=== PATIENT | male | born 1945 | race Caucasian/White ===

== ENCOUNTER 2024-02-23 21:35 | Inpatient (IN) | payer MEDICARE ==
[2024-02-23 22:48] LABS: Basophils % (A) 0 %; Eosinophils # (A) 0.4 k/uL (0-0.7); Eosinophils % (A) 5 %; HCT 41.4 % (39.0-53.0); HGB 13.6 gm/dL (13.0-17.5); Lymphocytes # (A) 1.4 k/uL (1.0-4.8); Lymphocytes % (A) 19 %; MCH 32.5 pg (25.0-35.0); MCHC 32.9 g/dL (31.0-37.0); MCV 98.7 fL (80.0-100.0); Mean Platelet Volume 7.3; Monocytes # (A) 0.7 k/uL (0-1.0); Monocytes % (A) 10 %; Neutrophils # (A) 4.5 k/uL (1.3-7.7); Neutrophils % (A) 63 %; Platelet Count 254 k/uL (150-450); RBC 4.19 m/uL (4.30-5.90); RDW 12.2 % (11.5-15.5); WBC 7.2 k/uL (3.8-10.6)
[2024-02-23 22:51] LABS: ALT 27 U/L (4-49); AST 36 U/L (17-59); African American GFR (CKD) >90 (>60 ml/min/1.73 sqM); Albumin 4.1 g/dL (3.5-5.0); Alkaline Phosphatase 74 U/L (38-126); Anion Gap 6 mmol/L; Blood Urea Nitrogen 24 mg/dL (9-20); Calcium 8.9 mg/dL (8.4-10.2); Carbon Dioxide 23 mmol/L (22-30); Chloride 97 mmol/L (98-107); Glucose 104 mg/dL (74-99); Non-African American GFR(CKD) 79 (>60 ml/min/1.73 sqM); Potassium 4.3 mmol/L (3.5-5.1); Sodium 126 mmol/L (137-145); Total Bilirubin 0.7 mg/dL (0.2-1.3); Total Protein 6.1 g/dL (6.3-8.2)
[2024-02-23 23:04] LABS: INR 0.9 (<1.2); Partial Thromboplastin Time 24.9 sec (22.0-30.0); Prothrombin Time 9.7 sec (10.0-12.5)
[2024-02-24] MEDS: LIDOCAINE 1% INJ 10MG/ML (20 ML MDV) SQ ONE (00:36)
[2024-02-24] MEDS: PROPOFOL 10 MG/ML 20 ML VIAL IV ONE ×2 (00:48→02:00)
--- NOTE | 2024-02-24 00:54 | CT ---
EXAM: CT Chest Without Intravenous Contrast CLINICAL HISTORY: ITS.REASON CT Reason: fall, pneumo TECHNIQUE: Axial computed tomography images of the chest without intravenous contrast. CTDI is 6.8 mGy and DLP is 342.1 mGy-cm. This CT exam was performed using one or more of the following dose reduction techniques: automated exposure control, adjustment of the mA and/or kV according to patient size, and/or use of iterative reconstruction technique. COMPARISON: No relevant prior studies available. FINDINGS: Lungs: The right lung is partially collapsed. The left lung is clear. Pleural space: Moderate pneumothorax on the right. No evidence of tension at this time. Heart: Heart size is normal. Moderate to severe CAD. Bones/joints: Right fourth through sixth rib fractures. Soft tissues: Soft tissue gas within the right pectoralis. Vasculature: Unremarkable. Lymph nodes: Unremarkable. IMPRESSION: 1. Moderate pneumothorax on the right. No evidence of tension at this time. Recommend chest tube. 2. Right fourth through sixth rib fractures. <MYCVCSECTION> Communications: 02/24/24 00:59 Verify Receipt Verified receipt with on 02/23 00: 58 (-04:00)
[2024-02-24] MEDS ORDERED: HYDROcodone/APAP 5-325MG 1 EACH TAB PO PRN (01:25)
[2024-02-24] MEDS ORDERED: NALOXONE 0.4 MG/ML 1 ML VIAL IV PRN (01:25)
[2024-02-24] MEDS ORDERED: ACETAMINOPHEN TAB 325 MG TAB PO PRN (01:25)
--- NOTE | 2024-02-24 01:26 | ED ---
Fall HPI - General Chief Complaint: Fall Stated Complaint: fall Time Seen by Provider: 02/23/24 21:40 Source: patient, EMS Mode of arrival: EMS - History of Present Illness Initial Comments: 78-year-old male presents to the emergency department with right-sided rib frac tures and pneumothorax diagnosis. Patient is currently on a cruise going through the [place]. He states that he fell in his room and landed on a chair arm on February 17. He has had some right-sided chest wall pain with some exertional shortness of breath. Patient was seen in a [facility]. No imaging was performed. He was prescribed Motrin. Patient continues to have some symptoms of shortness of breath and therefore was seen by the cruise doctor. X-ray was performed and demonstrated right-sided rib fractures with a pneumothorax. They felt the patient needed cardiothoracic evaluation and therefore they exited the boat and came to the closest hospital. At this time the patient states he is pain-free. He has minimal shortness of breath. No fevers or cough. Denies hitting his head. No other injuries from the fall. No other alleviating, precipitating or modifying factors - Related Data Allergies Allergy/AdvReac Type Severity Reaction Status Date / Time No Known Allergies Allergy Verified 02/23/24 21:44 Review of Systems ROS Statement: Those systems with pertinent positive or pertinent negative responses have been documented in the HPI. ROS Other: All systems not noted in ROS Statement are negative. Past Medical History Past Medical History: Hypertension History of Any Multi-Drug Resistant Organisms: None Reported Past Surgical History: Heart Catheterization With Stent Past Psychological History: No Psychological Hx Reported Smoking Status: Former smoker Past Alcohol Use History: Daily Past Drug Use History: Marijuana General Exam Limitations: no limitations General appearance: alert, in no apparent distress Head exam: Present: atraumatic, normocephalic, normal inspection Eye exam: Present: normal appearance, PERRL, EOMI. Absent: scleral icterus, conjunctival injection, periorbital swelling ENT exam: Present: normal exam, mucous membranes moist Neck exam: Present: normal inspection. Absent: tenderness, meningismus, lymphadenopathy Respiratory exam: Present: chest wall tenderness (To palpation of the right lateralposterior chest wall. There is ecchymosis in the site with some crepitance palpated), decreased breath sounds (On the right). Absent: respiratory distress, wheezes, rales, rhonchi, stridor Cardiovascular Exam: Present: regular rate, normal rhythm, normal heart sounds. Absent: systolic murmur, diastolic murmur, rubs, gallop, clicks GI/Abdominal exam: Present: soft, normal bowel sounds. Absent: distended, tenderness, guarding, rebound, rigid Extremities exam: Present: normal inspection, full ROM, normal capillary refill. Absent: tenderness, pedal edema, joint swelling, calf tenderness Back exam: Present: normal inspection Neurological exam: Present: alert, oriented X3, CN II-XII intact Psychiatric exam: Present: normal affect, normal mood Skin exam: Present: warm, dry, intact, normal color. Absent: rash Course Vital Signs 02/23/24 02/23/24 02/24/24 21:39 22:54 00:29 Temperature 98.5 F Pulse Rate 69 70 64 Respiratory 16 18 16 Rate Blood Pressure 175/85 151/78 161/72 O2 Sat by Pulse 95 93 L 96 Oximetry 02/24/24 02/24/24 02/24/24 00:35 00:41 00:45 Temperature Pulse Rate 65 71 74 Respiratory 18 16 18 Rate Blood Pressure 167/79 135/72 124/65 O2 Sat by Pulse 98 96 95 Oximetry 02/24/24 02/24/24 02/24/24 00:58 01:05 01:15 Temperature Pulse Rate 68 72 70 Respiratory 16 16 16 Rate Blood Pressure 128/69 164/86 162/80 O2 Sat by Pulse 99 98 99 Oximetry 02/24/24 02/24/24 01:30 02:56 Temperature Pulse Rate 69 72 Respiratory 18 16 Rate Blood Pressure 179/80 171/67 O2 Sat by Pulse 98 97 Oximetry Procedures - [place] Protocol (Time Out) Procedure Performed:: thoravent placement Performing Provider: Irene Regalado Nurse: Yolanda Stephen Respiratory Therapist: Yaquelin Jalloh Patient Identification (2 identifiers required): Chart, Verbal, Arm Band, Name, Birthdate - Chest Tube Insertion Consent Obtained: written consent Side of Procedure: right Indication: Pneumothorax Placed on monitor/pulse oximetry: Yes Site Prep: Chloroprep Local Anesthesia: Lidocaine 1% Amount (mLs): 8 Insertion Site: Other (midclavicular, second intercostal space) Scalpel: #11 Open into Pleural Space Using: Trocar Tube Size (Jamaican): Other (13) Returns: Air Sutured in Place: No Attached to Suction: Yes Type of Suction: Pleuravac Repeat X-ray Results: Lung Inflated Patient Tolerated Procedure: well, no complications - Procedural Sedation *Procedural Sedation Start Time: 12:41 *Procedural Sedation Stop Time: 01:15 *Risks,benefits, and alternative therapies discussed?: Yes *Patient indicates understanding of risk/benefit discussion?: Yes *Indications: other (Insertion of chest tube) *Previous Adverse Reaction to Anesthesia/Sedation?: No *ASA Class: II *Mallampati Airway Score: 1 *Time of Last PO Intake: 17:00 Preparation: secured entrance monitor applied, pulse oximeter, capnometry used, supplemental O2 applied, reversal agents at bedside, suction/airway equipment at bedside IV Propofol Dose (mgs): 120 Complications: none Patient Tolerated Procedure: well, no complications Medical Decision Making - Medical Decision Making Was pt. sent in by a medical professional or institution (, PA, PUMPMAN, urgent care, hospital, or group home...) When possible be specific @ -Patient was sent in from the physician on the [employer] cruise line Did you speak to anyone other than the patient for history (EMS, parent, family, police, friend...)? What history was obtained from this source @ -No Did you review nursing and triage notes (agree or disagree)? Why? @ -I reviewed and agree with nursing and triage notes Were old charts reviewed (outside hosp., previous admission, EMS record, old EKG, old radiological studies, urgent care reports/EKG's, group home records)? Report findings @ -I reviewed the x-ray that was completed today on the crew ship Differential Diagnosis (chest pain, altered mental status, abdominal pain women, abdominal pain men, vaginal bleeding, weakness, fever, dyspnea, syncope, headache, dizziness, GI bleed, back pain, seizure, CVA, palpatations, mental health, musculoskeletal)? @ -Differential Dyspnea: Coronary syndrome, arrhythmia, tamponade, asthma, COPD, pulmonary embolism, pneumonia, pneumothorax, pulmonary effusion, anaphylaxis, diabetic ketoacidosis, flailed chest, pulmonary contusion, diaphragmatic rupture, anemia, neuromuscular, this is not meant to be an all-inclusive list. EKG interpreted by me (3pts min.). @ -yes and demonstrates sinus rhythm with rate of 69. ME interval 183. QRS 93. Qtc 396. No st segment elevation or depression. X-rays interpreted by me (1pt min.). @ -None done CT interpreted by me (1pt min.). @ -yes and demonstrates a moderate right-sided pneumothorax U/S interpreted by me (1pt. min.). @ -None done What testing was considered but not performed or refused? (CT, X-rays, U/S, labs)? Why? @ -None What meds were considered but not given or refused? Why? @ -None Did you discuss the management of the patient with other professionals (professionals i.e. DrAng, PA, PUMPMAN, lab, RT, psych nurse, geriatric social work professor, rn case manager hospice, teacher, ecological technical officer, housing case manager)? Give summary @ -Discussed case with Dr. Griffin Was smoking cessation discussed for >3mins.? @ -No Was critical care preformed (if so, how long)? @ -Yes, 35 minutes Were there social determinants of health that impacted care today? How? (Homelessness, low income, unemployed, alcoholism, drug addiction, transportation, low edu. Level, literacy, decrease access to med. care, senior living, rehab)? @ -No Was there de-escalation of care discussed even if they declined (Discuss DNR or withdrawal of care, Hospice)? DNR status @ -No What co-morbidities impacted this encounter? (DM, HTN, Smoking, COPD, CAD, Cancer, CVA, ARF, Chemo, Hep., AIDS, mental health diagnosis, sleep apnea, morbid obesity)? @ -None Was patient admitted / discharged? Hospital course, mention meds given and route, prescriptions, significant lab abnormalities, going to OR and other pertinent info. @ -Upon arrival patient seen and evaluated in room 6. Thorough history and physical exam was performed. I did review the x-ray print out that was sent with the patient. I did obtain a CT of the patient's chest which demonstrates moderate sided pneumothorax with rib fractures. Patient does require chest tube placement. Patient initially would like to go home and have chest tube placed back home however I informed him of the detrimental nature without intervening at this time. Also discussed the inability to fly with his current diagnosis. Patient then agrees to chest tube placement. 13 Jamaican right-sided Thora vent was placed without difficulty. Procedural sedation was performed in order to place the chest tube. Chest x-ray was performed which demonstrates no residual pneumothorax at this time. Tube appears to be in correct position with condensation within the tube and flutter to the valve. Patient will be admitted to [facility]. Jenny Ugalde for admission. Dr. Dallas will be placed on consult Undiagnosed new problem with uncertain prognosis? @ -No Drug Therapy requiring intensive monitoring for toxicity (Heparin, Nitro, Insulin, Cardizem)? @ -No Were any procedures done? @ -No Diagnosis/symptom? @ -Acute fall, right sided rib fractures, acute pneumothorax status post chest tube placement Acute, or Chronic, or Acute on Chronic? @ -Acute Uncomplicated (without systemic symptoms) or Complicated (systemic symptoms)? @ -Complicated Side effects of treatment? @ -No Exacerbation, Progression, or Severe Exacerbation? @ -No Poses a threat to life or bodily function? How? (Chest pain, [place], [place], pneumonia, PE, COPD, DKA, ARF, appy, cholecystitis, CVA, Diverticulitis, Homicidal, Suicidal, threat to staff... and all critical care pts) @ -Yes, as the patient has a collapsed lung - Lab Data Result diagrams: 02/23/24 21:47 02/23/24 21:47 Lab Results 02/23/24 02/23/24 02/23/24 Range/Units 21:47 21:47 21:47 WBC 7.2 (3.8-10.6) k/uL RBC 4.19 L (4.30-5.90) m/uL Hgb 13.6 (13.0-17.5) gm/dL Hct 41.4 (39.0-53.0) % MCV 98.7 (80.0-100.0) fL MCH 32.5 (25.0-35.0) pg MCHC 32.9 (31.0-37.0) g/dL RDW 12.2 (11.5-15.5) % Plt Count 254 (150-450) k/uL MPV 7.3 Neutrophils % 63 % Lymphocytes % 19 % Monocytes % 10 % Eosinophils % 5 % Basophils % 0 % Neutrophils # 4.5 (1.3-7.7) k/uL Lymphocytes # 1.4 (1.0-4.8) k/uL Monocytes # 0.7 (0-1.0) k/uL Eosinophils # 0.4 (0-0.7) k/uL Basophils # 0.0 (0-0.2) k/uL PT 9.7 L (10.0-12.5) sec INR 0.9 (<1.2) APTT 24.9 (22.0-30.0) sec Sodium 126 L (137-145) mmol/L Potassium 4.3 (3.5-5.1) mmol/L Chloride 97 L (98-107) mmol/L Carbon Dioxide 23 (22-30) mmol/L Anion Gap 6 mmol/L BUN 24 H (9-20) mg/dL Creatinine 0.92 (0.66-1.25) mg/dL Est GFR (CKD-EPI)AfAm >90 (>60 ml/min/1.73 sqM) Est GFR (CKD-EPI)NonAf 79 (>60 ml/min/1.73 sqM) Glucose 104 H (74-99) mg/dL Calcium 8.9 (8.4-10.2) mg/dL Total Bilirubin 0.7 (0.2-1.3) mg/dL AST 36 (17-59) U/L ALT 27 (4-49) U/L Alkaline Phosphatase 74 (38-126) U/L Total Protein 6.1 L (6.3-8.2) g/dL Albumin 4.1 (3.5-5.0) g/dL Disposition Clinical Impression: Fall, Rib fractures, Pneumothorax Disposition: ADMITTED IP TO THIS HOSP Condition: Stable Is patient prescribed a controlled substance at d/c from ED?: No Time of Disposition: Decision to Admit Reason: Admit from EC Decision Date: 02/24/24 Decision Time: :25
--- NOTE | 2024-02-24 01:50 | XR ---
EXAM: XR Chest, 1 View CLINICAL HISTORY: ITS.REASON XR Reason: thoravent placement TECHNIQUE: Frontal view of the chest. COMPARISON: None. FINDINGS: Lungs: Low lung volumes. Right thoracostomy tube terminates at the right lung apex. No substantial pneumothorax is seen.. Atelectatic changes are seen in the left lung base Pleural space: Loss of bilateral costophrenic sulci question small pleural effusion.. Heart: Borderline/mildly enlarged cardiac silhouette. Calcified aortic atherosclerosis. Normal mediastinal contour. Bones/joints: Unremarkable. No acute fracture. IMPRESSION: Right chest tube present with the tip in the right apical region. No discernible pneumothorax Left basilar atelectatic changes. Probably small pleural effusion present. An elevated right hemidiaphragm. .
[2024-02-24] MEDS: MORPHINE SULFATE 4 MG/ML SYRINGE IV PRN (02:52)
[2024-02-24] MEDS: SODIUM CHLORIDE 0.9% 1,000 ML IV STA (10:08)
--- NOTE | 2024-02-24 10:50 | P.GSCN ---
History of Present Illness Consult date: 02/24/24 Reason for Consult: Right-sided traumatic pneumothorax status post fall, status post Thora vent placement Requesting physician: Dimitri Griffin History of present illness: This is a 78-year-old gentleman who lives in [place]. He has a previous medical history of CAD status post stenting, hypertension, previous tobacco dependence, daily EtOH use, and occasional marijuana use. Apparently this patient fell against a chair last Wednesday. He did have a bit of pain and did go to an urgent care in [place]. They did not check a chest x-ray, told him to take Motrin for the pain. The patient then departed with his and a [facility] cruise. Apparently on the cruise he continue to have shortness of breath, he was seen by the doctor on board the cruise who performed a chest x- ray and noticed a right-sided pneumothorax. The patient was told to get off the cruise and go to a nearby hospital. He came into [facility] emergency room where he had a CT scan demonstrating large right-sided pneumothorax along with right-sided rib fractures in ribs 4 through 6. A Thora vent was placed in the emergency room, repeat chest x-ray demonstrated near complete reexpansion of the lung. The patient was admitted for evaluation and treatment with consultation placed to pulmonology. Apparently the patient had indicated to pulmonology that he wanted to leave to fly home to [place]. Consultation was placed to cardiothoracic surgery for treatment recommendations. Review of Systems Review of systems was completed and was negative except as noted - Respiratory Reports as per HPI, Reports dyspnea, Reports pain Past Medical History Past Medical History: Coronary Artery Disease (CAD), Hypertension History of Any Multi-Drug Resistant Organisms: None Reported Past Surgical History: Heart Catheterization With Stent Past Psychological History: No Psychological Hx Reported Smoking Status: Former smoker Past Alcohol Use History: Daily Past Drug Use History: Marijuana Medications and Allergies Home Medications Medication Instructions Recorded Confirmed Type Acetaminophen [Tylenol Arthritis] 650 mg PO BID 02/24/24 02/24/24 History Alfuzosin HCl [Alfuzosin HCl ER] 10 mg PO HS 02/24/24 02/24/24 History Ascorbic Acid [Vitamin C] 1,000 mg PO DAILY 02/24/24 02/24/24 History Atorvastatin [Lipitor] 60 mg PO HS 02/24/24 02/24/24 History Beta Sitosterol Pure Encap. 1 tab PO DAILY 02/24/24 02/24/24 History Bromfenac Sodium [Prolensa Ophth 1 drop LEFT EYE Q2D 02/24/24 02/24/24 History Soln] Diclofenac/Lidocaine Gel 1 applic TOPICAL QID PRN 02/24/24 02/24/24 History Docusate 50mg 50 mg PO DAILY 02/24/24 02/24/24 History Eszopiclone [Lunesta] 3 mg PO HS 02/24/24 02/24/24 History Lutein/Zeaxanthin 1 cap PO DAILY 02/24/24 02/24/24 History [Lutein-Zeaxanthin 20-4 mg Softgel] Meloxicam [Mobic] 15 mg PO DAILY 02/24/24 02/24/24 History Multivitamins, Thera [Multivitamin 1 tab PO DAILY 02/24/24 02/24/24 History (formulary)] Prevagen 1 tab PO DAILY 02/24/24 02/24/24 History Spironolactone [Aldactone] 25 mg PO HS 02/24/24 02/24/24 History Sulfamethoxazole/Trimethoprim 1 tab PO BID 02/24/24 02/24/24 History [Bactrim DS 800-160 mg] Testosterone Cypionate 100 mg IM Q21D 02/24/24 02/24/24 History [Depo-Testosterone] Valsartan [Diovan] 160 mg PO DAILY 02/24/24 02/24/24 History amLODIPine [Norvasc] 5 mg PO HS 02/24/24 02/24/24 History icosapent ethyL [Icosapent Ethyl] 2 gm PO DAILY 02/24/24 02/24/24 History metFORMIN HCL ER [Glucophage XR] 500 mg PO HS 02/24/24 02/24/24 History Allergies Allergy/AdvReac Type Severity Reaction Status Date / Time No Known Allergies Allergy Verified 02/24/24 06:33 Surgical - Exam Vital Signs Temp Pulse Resp BP Pulse Ox 98.5 F 69 16 175/85 95 02/23/24 21:39 02/23/24 21:39 02/23/24 21:39 02/23/24 21:39 02/23/24 21:39 CONSTITUTIONAL: Awake and alert, appears comfortable, cooperative, well- developed, well-nourished, no acute distress EYES: Pupils equal, round, reactive to light, normal ocular movement ENT: Moist mucous membranes without oral lesions present NECK: No masses, no bruits, trachea midline RESPIRATORY: Lungs sounds clear to auscultation bilaterally. Respirations even, nonlabored. Currently on room air with oxygen saturation 98%. Strong cough. Thora-vent present to right side chest, was connected to continuous wall suction with no airleak present CARDIOVASCULAR: S1, S2 present. Regular rate and rhythm. Palpable peripheral pulses bilaterally. No edema present. No calf pain or tenderness noted GASTROINTESTINAL: Abdomen soft, nontender, nondistended without masses or organomegaly noted. There is no rebound or guarding present. Active bowel sounds present 4 quadrants. GENITOURINARY: Deferred INTEGUMENTARY: Skin is warm and dry. Bruising present to right lower lateral chest NEUROLOGIC: Cranial nerves II through XII intact, normal coordination, no obvious motor or sensory deficits, speech is normal MUSKULOSKELETAL: Able to move all extremities, strength equal bilaterally, normal posture PSYCHIATRIC: Alert and oriented to person place and time, appropriate affect, intact judgment and insight Results - Labs 02/23/24 21:47 02/23/24 21:47 Abnormal Lab Results - Last 24 Hours (Table) 02/23/24 02/23/24 02/23/24 Range/Units 21:47 21:47 21:47 RBC 4.19 L (4.30-5.90) m/uL PT 9.7 L (10.0-12.5) sec Sodium 126 L (137-145) mmol/L Chloride 97 L (98-107) mmol/L BUN 24 H (9-20) mg/dL Glucose 104 H (74-99) mg/dL Total Protein 6.1 L (6.3-8.2) g/dL Diabetes panel 02/23/24 Range/Units 21:47 Sodium 126 L (137-145) mmol/L Potassium 4.3 (3.5-5.1) mmol/L Chloride 97 L (98-107) mmol/L Carbon Dioxide 23 (22-30) mmol/L BUN 24 H (9-20) mg/dL Creatinine 0.92 (0.66-1.25) mg/dL Glucose 104 H (74-99) mg/dL Calcium 8.9 (8.4-10.2) mg/dL AST 36 (17-59) U/L ALT 27 (4-49) U/L Alkaline Phosphatase 74 (38-126) U/L Total Protein 6.1 L (6.3-8.2) g/dL Albumin 4.1 (3.5-5.0) g/dL Calcium panel 02/23/24 Range/Units 21:47 Calcium 8.9 (8.4-10.2) mg/dL Albumin 4.1 (3.5-5.0) g/dL Pituitary panel 02/23/24 Range/Units 21:47 Sodium 126 L (137-145) mmol/L Potassium 4.3 (3.5-5.1) mmol/L Chloride 97 L (98-107) mmol/L Carbon Dioxide 23 (22-30) mmol/L BUN 24 H (9-20) mg/dL Creatinine 0.92 (0.66-1.25) mg/dL Glucose 104 H (74-99) mg/dL Calcium 8.9 (8.4-10.2) mg/dL Adrenal panel 02/23/24 Range/Units 21:47 Sodium 126 L (137-145) mmol/L Potassium 4.3 (3.5-5.1) mmol/L Chloride 97 L (98-107) mmol/L Carbon Dioxide 23 (22-30) mmol/L BUN 24 H (9-20) mg/dL Creatinine 0.92 (0.66-1.25) mg/dL Glucose 104 H (74-99) mg/dL Calcium 8.9 (8.4-10.2) mg/dL Total Bilirubin 0.7 (0.2-1.3) mg/dL AST 36 (17-59) U/L ALT 27 (4-49) U/L Alkaline Phosphatase 74 (38-126) U/L Total Protein 6.1 L (6.3-8.2) g/dL Albumin 4.1 (3.5-5.0) g/dL - Imaging Chest x-ray: report reviewed, image reviewed CT scan - chest: report reviewed, image reviewed Assessment and Plan Assessment: Right-sided traumatic pneumothorax, status post Thora vent placement by the emergency room physicians Fall from standing Right-sided 4-6 rib fractures Shortness of breath, right-sided chest pain CAD status post stenting Hypertension Previous tobacco dependence Daily EtOH use Occasional marijuana use Plan: The patient was seen and examined at the bedside with present. Chart/diagnostics reviewed. Case was discussed with Dr. Gaffney from cardiothoracic surgery as well as Dr. Dallas. We placed his Thora-vent to wate rseal. Will repeat chest x-ray in the morning, if stable likely will discontinue Thora-vent. Possibly may place occlusive cap in the morning and then repeat chest x-ray just to be sure pneumothorax has truly resolved. Patient encouraged to continue incentive spirometry use. Pain control per curr ent medication regimen. Patient and were instructed that the patient may not get on an airplane for a minimum of 1 week, preferably 2 weeks. They did verbalize understanding that they would need to drive home after discharge. Medical management of other comorbidities per internal medicine, pulmonology, trauma services. Thank you Dr. Dallas for this consult. I have personally seen and examined the patient, performed the documentation and the assessment and plan as written. Number of minutes spent on the visit: 30. MICHELLE Sandoval
[2024-02-24 10:57] LABS: Basophils # (A) 0.1 k/uL (0-0.2); Basophils % (A) 1 %; Eosinophils # (A) 0.3 k/uL (0-0.7); Eosinophils % (A) 4 %; HCT 42.9 % (39.0-53.0); HGB 14.5 gm/dL (13.0-17.5); Lymphocytes % (A) 11 %; MCH 33.3 pg (25.0-35.0); MCHC 33.8 g/dL (31.0-37.0); MCV 98.7 fL (80.0-100.0); Mean Platelet Volume 7.7; Monocytes # (A) 0.8 k/uL (0-1.0); Monocytes % (A) 9 %; Neutrophils # (A) 6.3 k/uL (1.3-7.7); Neutrophils % (A) 73 %; Platelet Count 283 k/uL (150-450); RBC 4.35 m/uL (4.30-5.90); RDW 12.4 % (11.5-15.5); WBC 8.6 k/uL (3.8-10.6)
[2024-02-24] MEDS ORDERED: LORazepam 1 MG TAB PO PRN ×3 (13:22)
[2024-02-24] MEDS ORDERED: LORazepam 0.5 MG TAB PO PRN (13:22)
--- NOTE | 2024-02-24 13:30 | P.GSHP ---
History of Present Illness H&P Date: 02/24/24 CHIEF COMPLAINT: Fall HISTORY OF PRESENT ILLNESS: This is a 78-year-old male who lives in [place]. He was in a hotel in [place] on February 17 in which he was ambulating that evening to the bathroom he fell coming back and hit the right side of his rib cage on the arm of a chair. Patient reports that he had pain there he did go to an urgent care in [place] no x-ray was performed and he was given the clearance to board the [employer] ship. While on board of the [employer] ship patient continued to have pain and some shortness of breath and difficulty taking in deep breaths. They performed a chest x-ray on the crew ship which did report right-sided rib fractures and right pneumothorax. Patient then got off the cruise ship to come to the nearest hospital for treatment. CT scan of the chest performed here did report a moderate right-sided pneumothorax and right- sided rib fractures on ribs 4 through 6. Patient had a Thora vent chest tube placed in the ER. Patient seen by cardiothoracic service in which they have placed a Thora vent to [facility] and have repeat chest x-ray in a.m. Patient reports that his pain is controlled and he is feeling better. He is on room air. PAST MEDICAL HISTORY: See list. PAST SURGICAL HISTORY: See list. MEDICATIONS: See list. ALLERGIES: See list. SOCIAL HISTORY: No illicit drug use. Daily alcohol use. Former smoker REVIEW OF SYSTEMS: CONSTITUTIONAL: Denies fever or chills. HEENT: Denies blurred vision, vision changes, or eye pain. Denies hemoptysis ENDOCRINE: Denies heat or cold intolerance. CARDIOVASCULAR: Denies chest pain or pressure. RESPIRATORY: Shortness of breath when taking in a deep breath GASTROINTESTINAL: Denies abdominal pain. Denies nausea or vomiting. NEURO: Denies history of seizures. PSYCH: No depression or suicidal ideation HEMATOLOGIC: Denies bleeding disorders. LYMPHATIC: The patient denies any lumps and bumps around the neck. GENITOURINARY: Denies any blood in urine or increased urinary frequency. MUSCULOSKELETAL: Denies myalgias. Denies joint swelling. Denies decreased range of motion beyond patients baseline. SKIN: Denies pruitis. Denies rash. PHYSICAL EXAM: VITAL SIGNS: Reviewed GENERAL: Well-developed in no acute distress. HEENT: No sclera icterus. Extraocular movements grossly intact. Moist buccal mucosa. Head is atraumatic, normocephalic. Hears conversational speech. No nasal drainage. NECK: Supple without lymphadenopathy. CHEST: Non-labored respirations and equal bilateral excursions. Thora vent right chest wall. Patient has bruising along the right side of the rib cage CARDIOVASCULAR: Palpable 2+ radial pulses. ABDOMEN: Soft. Nondistended. Nontender MUSCULOSKELETAL: No clubbing or cyanosis. NEUROLOGIC: No focal or lateralizing signs. Cranial nerves II through XII grossly intact. PSYCH: Appropriate affect. Alert and oriented to person, place and time. SKIN: Well perfused. Good skin turgor. LABORATORY DATA: WBC 8.6 hgb 14.5 platelets 283 Na 126 k 4.3 creatinine 0.92 IMAGING: CT chest moderate pneumothorax on the right. No evidence of tension at this time. Recommend chest tube. Right fourth through sixth rib fractures. Chest x-ray right chest tube present with tip in the right apical region. No discernible pneumothorax. ASSESSMENT: 1. Fall with trauma to right-sided rib cage 2. Right fourth through sixth rib fractures 3. Right pneumothorax secondary to trauma status post Thora vent placement 4. Daily alcohol use 5. History of coronary disease with stenting 6. Hypertension 7. Hyponatremia PLAN: -Chest tube management per cardiothoracic service -Consult pulmonary service regarding pneumothorax -Consult medicine service for medical management -Encourage patient to use incentive spirometer -Follow-up on chest x-ray for tomorrow -[facility] protocol with as needed Ativan to monitor for alcohol withdrawal -Regular diet -Continue pain management -GI prophylaxis Pepcid and DVT prophylaxis subcu heparin Physician Program Host note has been reviewed by physician. Signing provider agrees with the documented findings, assessment, and plan of care. Past Medical History Past Medical History: Hypertension History of Any Multi-Drug Resistant Organisms: None Reported Past Surgical History: Heart Catheterization With Stent Past Psychological History: No Psychological Hx Reported Smoking Status: Former smoker Past Alcohol Use History: Daily Past Drug Use History: Marijuana - Past Family History Brother(s) Family Medical History: Cancer Additional Family Medical History / Comment(s): throat cancer Mother Family Medical History: Cancer Additional Family Medical History / Comment(s): leukemia Medications and Allergies Home Medications Medication Instructions Recorded Confirmed Type Acetaminophen [Tylenol Arthritis] 650 mg PO BID 02/24/24 02/24/24 History Alfuzosin HCl [Alfuzosin HCl ER] 10 mg PO HS 02/24/24 02/24/24 History Ascorbic Acid [Vitamin C] 1,000 mg PO DAILY 02/24/24 02/24/24 History Atorvastatin [Lipitor] 60 mg PO HS 02/24/24 02/24/24 History Beta Sitosterol Pure Encap. 1 tab PO DAILY 02/24/24 02/24/24 History Bromfenac Sodium [Prolensa Ophth 1 drop LEFT EYE Q2D 02/24/24 02/24/24 History Soln] Diclofenac/Lidocaine Gel 1 applic TOPICAL QID PRN 02/24/24 02/24/24 History Docusate 50mg 50 mg PO DAILY 02/24/24 02/24/24 History Eszopiclone [Lunesta] 3 mg PO HS 02/24/24 02/24/24 History Lutein/Zeaxanthin 1 cap PO DAILY 02/24/24 02/24/24 History [Lutein-Zeaxanthin 20-4 mg Softgel] Meloxicam [Mobic] 15 mg PO DAILY 02/24/24 02/24/24 History Multivitamins, Thera [Multivitamin 1 tab PO DAILY 02/24/24 02/24/24 History (formulary)] Prevagen 1 tab PO DAILY 02/24/24 02/24/24 History Spironolactone [Aldactone] 25 mg PO HS 02/24/24 02/24/24 History Sulfamethoxazole/Trimethoprim 1 tab PO BID 02/24/24 02/24/24 History [Bactrim DS 800-160 mg] Testosterone Cypionate 100 mg IM Q21D 02/24/24 02/24/24 History [Depo-Testosterone] Valsartan [Diovan] 160 mg PO DAILY 02/24/24 02/24/24 History amLODIPine [Norvasc] 5 mg PO HS 02/24/24 02/24/24 History icosapent ethyL [Icosapent Ethyl] 2 gm PO DAILY 02/24/24 02/24/24 History metFORMIN HCL ER [Glucophage XR] 500 mg PO HS 02/24/24 02/24/24 History Allergies Allergy/AdvReac Type Severity Reaction Status Date / Time No Known Allergies Allergy Verified 02/24/24 06:33 Surgical - Exam Vital Signs Temp Pulse Resp BP Pulse Ox 98.5 F 69 16 175/85 95 02/23/24 21:39 02/23/24 21:39 02/23/24 21:39 02/23/24 21:39 02/23/24 21:39 Patient Seen Date: 02/24/24 Patient Seen Time: 09:00 Results - Labs 02/24/24 10:30 02/24/24 10:30 Abnormal Lab Results - Last 24 Hours (Table) 02/23/24 02/23/24 02/23/24 Range/Units 21:47 21:47 21:47 RBC 4.19 L (4.30-5.90) m/uL PT 9.7 L (10.0-12.5) sec Sodium 126 L (137-145) mmol/L Chloride 97 L (98-107) mmol/L BUN 24 H (9-20) mg/dL Glucose 104 H (74-99) mg/dL Total Protein 6.1 L (6.3-8.2) g/dL Diabetes panel 02/23/24 Range/Units 21:47 Sodium 126 L (137-145) mmol/L Potassium 4.3 (3.5-5.1) mmol/L Chloride 97 L (98-107) mmol/L Carbon Dioxide 23 (22-30) mmol/L BUN 24 H (9-20) mg/dL Creatinine 0.92 (0.66-1.25) mg/dL Glucose 104 H (74-99) mg/dL Calcium 8.9 (8.4-10.2) mg/dL AST 36 (17-59) U/L ALT 27 (4-49) U/L Alkaline Phosphatase 74 (38-126) U/L Total Protein 6.1 L (6.3-8.2) g/dL Albumin 4.1 (3.5-5.0) g/dL Calcium panel 02/23/24 Range/Units 21:47 Calcium 8.9 (8.4-10.2) mg/dL Albumin 4.1 (3.5-5.0) g/dL Pituitary panel 02/23/24 Range/Units 21:47 Sodium 126 L (137-145) mmol/L Potassium 4.3 (3.5-5.1) mmol/L Chloride 97 L (98-107) mmol/L Carbon Dioxide 23 (22-30) mmol/L BUN 24 H (9-20) mg/dL Creatinine 0.92 (0.66-1.25) mg/dL Glucose 104 H (74-99) mg/dL Calcium 8.9 (8.4-10.2) mg/dL Adrenal panel 02/23/24 Range/Units 21:47 Sodium 126 L (137-145) mmol/L Potassium 4.3 (3.5-5.1) mmol/L Chloride 97 L (98-107) mmol/L Carbon Dioxide 23 (22-30) mmol/L BUN 24 H (9-20) mg/dL Creatinine 0.92 (0.66-1.25) mg/dL Glucose 104 H (74-99) mg/dL Calcium 8.9 (8.4-10.2) mg/dL Total Bilirubin 0.7 (0.2-1.3) mg/dL AST 36 (17-59) U/L ALT 27 (4-49) U/L Alkaline Phosphatase 74 (38-126) U/L Total Protein 6.1 L (6.3-8.2) g/dL Albumin 4.1 (3.5-5.0) g/dL
--- NOTE | 2024-02-24 13:47 | P.CNPUL ---
History of Present Illness Consult date: 02/24/24 Requesting physician: Aby Aldana Reason for consult: dyspnea, pneumothorax, abnormal CXR/CT Chief complaint: Shortness of breath, post trauma History of present illness: This is a very pleasant 78-year-old male patient who resides in the state [facility]. He has a history of hyperlipidemia, coronary artery disease with previous stent placement, hypertension, diabetes mellitus, former smoker, daily alcohol use. He was in [facility] boarding a [employer] ship and the night before departure in the hotel he had taken a fall and hit his right chest against a chair on February 18, 2024. He was seen in a urgent care the following morning and was deemed okay to travel. No images were obtained. He was given Motrin. He boarded the ship on February 19, 2024 and by February 22 he had seen the ship's physician for ongoing shortness of breath and right-sided chest pain. At that time an x-ray did reveal a collapsed right lung. He was taken off the ship and presented here to the emergency room last night. A CT scan of the chest revealed a moderate pneumothorax on the right. No evidence of tension. Right 4 through 6 rib fractures. A Thora vent was placed in the emergency room. Follow-up chest x-ray showed improvement of the pneumothorax. White count 8.6. Hemoglobin 14.5. Platelets 283. Sodium 126. Potassium 4.3. Bicarb 23. BUN 24. Creatinine 0.92. Glucose 104. He is seen today in consultation on the regular medical floor. He is currently sitting up in a humberto ir at the bedside. Awake and alert in no acute distress. Maintaining good O2 saturations in the upper 90s on room air. He is afebrile. Hemodynamically stable. Denies any significant right-sided chest pain. No worsening shortness of breath, cough or congestion. Review of Systems REVIEW OF SYSTEMS: CONSTITUTIONAL: Denies any recent significant weight loss or weight gain. EYES: Denies change in vision. EARS, NOSE, MOUTH, THROAT: Denies headaches, denies sore throat. CARDIOVASCULAR: Positive for right-sided chest pain, no palpitations or syncopal episodes. RESPIRATORY: Denies shortness of breath, cough, congestion or hemoptysis. GASTROINTESTINAL: Denies change in appetite, denies abdominal pain GENITOURINARY: Denies hematuria, denies infections. MUSKULOSKELETAL: Denies pain, denies swelling. INTEGUMENTARY: Denies rash, denies eczema. NEUROLOGICAL: Denies recent memory loss, no recent seizure activity. PSYCHIATRIC: Denies anxiety, denies depression. HEMATOLOGIC/LYMPHATIC: Denies anemia, denies enlarged lymph nodes. Past Medical History Past Medical History: Hypertension History of Any Multi-Drug Resistant Organisms: None Reported Past Surgical History: Heart Catheterization With Stent Past Psychological History: No Psychological Hx Reported Smoking Status: Former smoker Past Alcohol Use History: Daily Past Drug Use History: Marijuana Medications and Allergies Home Medications Medication Instructions Recorded Confirmed Type Acetaminophen [Tylenol Arthritis] 650 mg PO BID 02/24/24 02/24/24 History Alfuzosin HCl [Alfuzosin HCl ER] 10 mg PO HS 02/24/24 02/24/24 History Ascorbic Acid [Vitamin C] 1,000 mg PO DAILY 02/24/24 02/24/24 History Atorvastatin [Lipitor] 60 mg PO HS 02/24/24 02/24/24 History Beta Sitosterol Pure Encap. 1 tab PO DAILY 02/24/24 02/24/24 History Bromfenac Sodium [Prolensa Ophth 1 drop LEFT EYE Q2D 02/24/24 02/24/24 History Soln] Diclofenac/Lidocaine Gel 1 applic TOPICAL QID PRN 02/24/24 02/24/24 History Docusate 50mg 50 mg PO DAILY 02/24/24 02/24/24 History Eszopiclone [Lunesta] 3 mg PO HS 02/24/24 02/24/24 History Lutein/Zeaxanthin 1 cap PO DAILY 02/24/24 02/24/24 History [Lutein-Zeaxanthin 20-4 mg Softgel] Meloxicam [Mobic] 15 mg PO DAILY 02/24/24 02/24/24 History Multivitamins, Thera [Multivitamin 1 tab PO DAILY 02/24/24 02/24/24 History (formulary)] Prevagen 1 tab PO DAILY 02/24/24 02/24/24 History Spironolactone [Aldactone] 25 mg PO HS 02/24/24 02/24/24 History Sulfamethoxazole/Trimethoprim 1 tab PO BID 02/24/24 02/24/24 History [Bactrim DS 800-160 mg] Testosterone Cypionate 100 mg IM Q21D 02/24/24 02/24/24 History [Depo-Testosterone] Valsartan [Diovan] 160 mg PO DAILY 02/24/24 02/24/24 History amLODIPine [Norvasc] 5 mg PO HS 02/24/24 02/24/24 History icosapent ethyL [Icosapent Ethyl] 2 gm PO DAILY 02/24/24 02/24/24 History metFORMIN HCL ER [Glucophage XR] 500 mg PO HS 02/24/24 02/24/24 History Allergies Allergy/AdvReac Type Severity Reaction Status Date / Time No Known Allergies Allergy Verified 02/24/24 06:33 Physical Exam Vitals: Vital Signs Temp Pulse Pulse Resp BP BP Pulse Ox 02/24/24 13:30 97.7 F 82 18 153/78 98 02/24/24 07:43 98.8 F 77 14 159/82 98 02/24/24 02:56 72 16 171/67 97 02/24/24 01:30 69 18 179/80 98 02/24/24 01:15 70 16 162/80 99 02/24/24 01:05 72 16 164/86 98 02/24/24 00:58 68 16 128/69 99 02/24/24 00:45 74 18 124/65 95 02/24/24 00:41 71 16 135/72 96 02/24/24 00:35 65 18 167/79 98 02/24/24 00:29 64 16 161/72 96 02/23/24 22:54 70 18 151/78 93 L 02/23/24 21:39 98.5 F 69 16 175/85 95 Intake and Output 02/23/24 02/24/24 02/24/24 22:59 06:59 14:59 Intake Total 140 Balance 140 Intake: Oral 140 Other: Weight 73.482 kg GENERAL EXAM: Alert, pleasant 78-year-old gentleman, up in a chair, on room air, fairly comfortable in no apparent distress. HEAD: Normocephalic. EYES: Normal reaction of pupils, equal size. NOSE: Clear with pink turbinates. THROAT: No erythema or exudates. NECK: No masses, no JVD. CHEST: No chest wall deformity. Right-sided Thora vent in place. LUNGS: Equal air entry with no crackles, wheeze, rhonchi or dullness. CVS: S1 and S2 normal with no audible murmur, regular rhythm. ABDOMEN: No hepatosplenomegaly, normal bowel sounds, no guarding or rigidity. SPINE: No scoliosis or deformity SKIN: No rashes CENTRAL NERVOUS SYSTEM: No focal deficits, tone is normal in all 4 extremities. EXTREMITIES: There is no peripheral edema. No clubbing, no cyanosis. Periphe ral pulses are intact. Results - Laboratory Findings CBC and BMP: 02/24/24 10:30 02/23/24 21:47 PT/INR, D-dimer PT 9.7 sec (10.0-12.5) L 02/23/24 21:47 INR 0.9 (<1.2) 02/23/24 21:47 Abnormal lab findings: Abnormal Labs 02/23/24 02/23/24 02/23/24 21:47 21:47 21:47 RBC 4.19 L PT 9.7 L Sodium 126 L Chloride 97 L BUN 24 H Glucose 104 H Total Protein 6.1 L - Diagnostic Findings Chest x-ray: image reviewed CT scan - chest: image reviewed Assessment and Plan Assessment: Right-sided chest pain secondary to trauma and right-sided pneumothorax with rib fractures 4 through 6 Hypertension Diabetes mellitus Hyperlipidemia Coronary disease with previous stent placement Former smoker Daily alcohol use Plan: The patient was seen and evaluated Chest x-ray, CT scan of the chest, labs and medications reviewed CT services consulted Thora vent is off suction Follow-up chest x-ray in a.m. Possibly remove Thora vent in a.m. Possible discharge tomorrow Patient informed not safe for him to fly He and his plan to drive back to [place] We will continue to follow and make further recommendations based on his clinical status I have personally seen and examined the patient, performed the documentation and the assessment and plan as written. Number of minutes spent on the visit: 20.
[2024-02-24] MEDS ORDERED: DICLOFENAC TOPICAL PRN (13:50)
[2024-02-24] MEDS ORDERED: LIDOCAINE TOPICAL PRN (13:50)
[2024-02-24 15:16] LABS: BUN/Creat Ratio 18.89 Ratio (12.00-20.00); Calcium 9.1 mg/dL (8.7-10.3); Carbon Dioxide 23.3 mmol/L (21.6-31.8); Chloride 97 mmol/L (96-109); Glucose 110 mg/dL (70-110); Potassium 4.9 mmol/L (3.5-5.5); Sodium 130 mmol/L (135-145)
[2024-02-24] MEDS: VALSARTAN 160 MG TAB PO SCH (15:40)
--- NOTE | 2024-02-24 16:04 | P.PAINPG ---
Objective - Vital Signs Vital signs: Vital Signs Temp 98.8 F 02/24/24 07:43 Pulse 77 02/24/24 07:43 Resp 14 02/24/24 07:43 BP 159/82 02/24/24 07:43 Pulse Ox 98 02/24/24 07:43 FiO2 Intake & Output 02/23/24 02/24/24 02/24/24 18:59 06:59 18:59 Intake Total 140 Balance 140 Weight 73.482 kg Intake: Oral 140 - Labs CBC & Chem 7: 02/24/24 10:30 02/24/24 10:30 Labs: Abnormal Lab Results - Last 24 Hours (Table) 02/23/24 02/23/24 02/23/24 Range/Units 21:47 21:47 21:47 RBC 4.19 L (4.30-5.90) m/uL PT 9.7 L (10.0-12.5) sec Sodium 126 L (137-145) mmol/L Chloride 97 L (98-107) mmol/L BUN 24 H (9-20) mg/dL Glucose 104 H (74-99) mg/dL Total Protein 6.1 L (6.3-8.2) g/dL PQRS Measure Charge Sheet Comment: HISTORY OF PRESENT ILLNESS: A 78 yr old male as a referral from Dr Regalado presents today w severe and chronic R sided chest pain secondary to fall 5 days ago for evaluation. CT Chest revealed R 4th - 6th rib fractures and a large R pneumothorax. Pt had a R thoracostomy removed, has Thora Vent device in place on R chest wall and will have repeat CXR to check for improvement of R pneumothorax. Using incentive spirometer as directed. Pt states pain level is provoked at 6 /10 in intensity, constant, localized in the R side of chest, stabbing in character w occasional shooting pain towards the R axilla and sternum. Pain is provoked by any movement, including breathing. Pain is alleviated by medications (MS ER 4mg IVP q4h prn, Alpena 5/325mg q4h prn, Tyl 650mg q6h), manual massage, repositioning and rest . He only received MS ER 4mg IVP one time and it did not alleviate his pain, so he hasn't asked for it again. He is looking forward to being discharged home in the next day or two. PMH: OA, HTN, CAD PSH: Cardiac Catheterization w Stent x2 SH: Daily tobacco use, Daily ETOH use, Occasional Cannabis use FH: Non contributory All: See list Meds: See list REVIEW OF ORGAN SYSTEMS: CONSTITUTIONAL: No fevers or chills. No recent weight loss. NEUROLOGICAL: + numbness and tingling along the distal extremities. No seizure disorders or headaches. MUSCULOSKELETAL: + pain PSYCHIATRIC: Denies current depression or suicidal thoughts. Physical Examinations : Constitutional : Cooperative, not in acute distress . +R sided Thora Vent in place . Diffuse R chest wall TTP Neurologic : Cranial nerve II to XII intact. No focal neurological deficits. Psychiatric : alert & oriented x 3. Matching mood & appropriate affect. Judgment & insight intact. Musculoskeletal : Cervical Spine Motor strength in the deltoid and biceps: Normal right side. Normal Left side Motor strength biceps and the wrist extensors: Normal right side . Normal left side Motor strength in the triceps muscle: Normal right side. Normal left side Deep tendon reflexes: Normal at the bi ceps. Normal at Brachioradialis. Normal at triceps Vertebral body tenderness to deep palpation over Cervical facet loading test: positive bilaterally Spurling test: positive bilaterally Neck distraction test: positive bilaterally Sadi sign: positive bilaterally Lumbar spine Motor strength lower extremities ,thigh and legs 5/5 Right side , 5/5 Left side Deep tendon reflexes : Normal Knee Jerk. Normal Ankle Jerk Vertebral body tenderness over Maldonado Test positive Lumbar facet Loading Test: positive Right / positive Left Range of motion of the lumbar spine Flexion 30 degrees, extension 10 degrees Straight Leg Raise test: Left/ Right positive at degrees Sapphire test: positive right / positive left. Severe tenderness over the Sacroiliac joint on the Right / Left sides Gaenslen test: positive bilaterally Seated flexion test: positive bilaterally. Sacral spine : Severe tenderness over the Sacroiliac joint: right side / left side Range of motion: Flexion of the lumbar spine <60 degrees Range of motion: Extension of the lumbar spine <20 degrees Gaenslen's Test positive Saphpire test: positive right side / left side Thigh Thrust Test Sacral Thrust Test Imaging: CT Chest from 02/23/24 reviewed CXR from 02/23/24 reviewed Assessment/ Plan : R 4th- 6th Rib Fractures s/p fall, R pneumothorax Recommendation of outpatient medication management. Alpena 7.5/325mg #15 NR Use, side effects, adverse reactions, safe storage discussed. All questions answered. I have spent greater than 30 minutes on patient care today. Dr Vu was available by phone for the evaluation of this patient. The time was used to review the medical records including relevant urine studies and Prescription history (MAPs), review of the available imaging, evaluation and examination of the patient, coordination of care with the medical staff and if applicable referring physicians, as well as creation of the medical record PQRS Narrative: Blood Pressure [Left Arm] 159/82 Blood Pressure 171/67 Pain Intensity 0 Pain Scale Used Non Verbal Pain Indicator Scale Used Numeric (1 - 10) Home Medications: Ambulatory Orders Acetaminophen [Tylenol Arthritis] 650 mg PO BID 02/24/24 Alfuzosin HCl [Alfuzosin HCl ER] 10 mg PO HS 02/24/24 Ascorbic Acid [Vitamin C] 1,000 mg PO DAILY 02/24/24 Atorvastatin [Lipitor] 60 mg PO HS 02/24/24 Beta Sitosterol Pure Encap. 1 tab PO DAILY 02/24/24 Bromfenac Sodium [Prolensa Ophth Soln] 1 drop LEFT EYE Q2D 02/24/24 Diclofenac/Lidocaine Gel 1 applic TOPICAL QID PRN 02/24/24 Docusate 50mg 50 mg PO DAILY 02/24/24 Eszopiclone [Lunesta] 3 mg PO HS 02/24/24 HYDROcodone/APAP 5-325MG [Alpen[place] 5-325] 1 each PO Q4HR PRN 3 Days #15 tab 02/23 Lutein/Zeaxanthin [Lutein-Zeaxanthin 20-4 mg Softgel] 1 cap PO DAILY 02/24/24 Meloxicam [Mobic] 15 mg PO DAILY 02/24/24 Multivitamins, Thera [Multivitamin (formulary)] 1 tab PO DAILY 02/24/24 Prevagen 1 tab PO DAILY 02/24/24 Spironolactone [Aldactone] 25 mg PO HS 02/24/24 Sulfamethoxazole/Trimethoprim [Bactrim DS 800-160 mg] 1 tab PO BID 02/24/24 Testosterone Cypionate [Depo-Testosterone] 100 mg IM Q21D 02/24/24 Valsartan [Diovan] 160 mg PO DAILY 02/24/24 amLODIPine [Norvasc] 5 mg PO HS 02/24/24 icosapent ethyL [Icosapent Ethyl] 2 gm PO DAILY 02/24/24 metFORMIN HCL ER [Glucophage XR] 500 mg PO HS 02/24/24 Controlled Substance Measures - Controlled Substance Measures Is patient prescribed a controlled substance at discharge?: Yes When asked, does pt state using other controlled substances?: No If prescribed controlled substance>3 days was MAPS reviewed?: Prescribed <3 Days
[2024-02-24] MEDS: HEPARIN SODIUM,PORCINE 5,000 UNIT/ML 1 ML VIAL SQ SCH (20:55)
[2024-02-24] MEDS: metFORMIN 500 MG TAB PO SCH (20:56)
[2024-02-24] MEDS: KETOROLAC 0.5% OPHTH DROPS 5 ML BTL LEFT EYE SCH (20:57)
[2024-02-24] MEDS: TAMSULOSIN 0.4 MG CAP.ER.24H PO SCH (20:58)
[2024-02-24] MEDS: FAMOTIDINE 20 MG TAB PO SCH (20:58)
[2024-02-24] MEDS: ATORVASTATIN 40 MG TAB PO SCH (21:09)
[2024-02-24] MEDS: ZOLPIDEM 5 MG TAB PO SCH (21:09)
[2024-02-24] MEDS: amLODIPine 5 MG TAB PO SCH (21:09)
--- NOTE | 2024-02-25 00:37 | P.CONS ---
History of Present Illness - Reason for Consult Consult date: 02/24/24 Medical management - Chief Complaint Right-sided pneumothorax - History of Present Illness Patient is a 78-year-old male with a past medical history of coronary artery disease per stent placement, hypertension, diabetes type 2 [id number], hyperlipidemia, prior history of smoking and daily alcohol use. Patient is from [place]. He is on a cruise trip and was staying at a hotel [address] the night before the departure. While he was walking to the bathroom hafsa moe fell on the chest and hit his right side of his chest over the chair on February 17. Patient was having severe right-sided chest wall pain and also shortness of breath. Patient was seen at [facility]. He was given pain medications and was discharged. No imaging was done at the time. Patient continues to have symptoms and worsening shortness of breath and pain. He was seen by physician in the cruise. X-ray was done showed right-sided rib fractures with pneumothorax. He is recommended to follow-up with the cardiothoracic surgery and exit the boat and came to nearest Hospital. Otherwise patient denies any complaints of fever or chills. No cough or sputum production. Patient did improve with medications. CT chest on admission showed moderate pneumothorax on the right. No evidence of tension at this time. Recommend chest tube. Right fourth through sixth rib fractures. Chest x-ray showed right chest tube present with tip in the right apical region. No discernible pneumothorax. Left basilar heterogeneous. Probably small pleural effusion present. An elevated right hemidiaphragm. EKG showed sinus rhythm. Laboratory data showed WBC 7.2 hemoglobin 13.6 and platelets 254 sodium 126 potassium 4.3 chloride 97 bicarb is 23 BUN 24 and creatinine 0.92 and blood sugar 104 liver enzymes are not elevated. Albumin 4.1 Review of Systems Constitutional: Patient denies any fever or chills . No generalized weakness or weight loss. Abdomen: Patient denied nausea vomiting and diarrhea and abdominal pain. Cardiovascular: Patient denies any chest pain or short of breath no palpitations. Respiratory: patient denied any cough or sputum production. No shortness of breath Neurologic: Patient denied any numbness or tingling. no headache. Musculoskeletal: Patient denies any complaints of joint swelling or deformity. Skin: Negative Psychiatric: Negative Endocrine: No heat or cold intolerance. No recent weight gain. Genitourinary: No dysuria or hematuria. All other 14 point ROS negative except the above Past Medical History Past Medical History: Coronary Artery Disease (CAD), Hypertension History of Any Multi-Drug Resistant Organisms: None Reported Past Surgical History: Heart Catheterization With Stent Past Psychological History: No Psychological Hx Reported Smoking Status: Former smoker Past Alcohol Use History: Daily Past Drug Use History: Marijuana - Past Family History Brother(s) Family Medical History: Cancer Additional Family Medical History / Comment(s): throat cancer Mother Family Medical History: Cancer Additional Family Medical History / Comment(s): leukemia Medications and Allergies Home Medications Medication Instructions Recorded Confirmed Type Acetaminophen [Tylenol Arthritis] 650 mg PO BID 02/24/24 02/24/24 History Alfuzosin HCl [Alfuzosin HCl ER] 10 mg PO HS 02/24/24 02/24/24 History Ascorbic Acid [Vitamin C] 1,000 mg PO DAILY 02/24/24 02/24/24 History Atorvastatin [Lipitor] 60 mg PO HS 02/24/24 02/24/24 History Beta Sitosterol Pure Encap. 1 tab PO DAILY 02/24/24 02/24/24 History Bromfenac Sodium [Prolensa Ophth 1 drop LEFT EYE Q2D 02/24/24 02/24/24 History Soln] Diclofenac/Lidocaine Gel 1 applic TOPICAL QID PRN 02/24/24 02/24/24 History Docusate 50mg 50 mg PO DAILY 02/24/24 02/24/24 History Eszopiclone [Lunesta] 3 mg PO HS 02/24/24 02/24/24 History HYDROcodone/APAP 5-325MG [[place] 1 each PO Q4HR PRN 3 Days #15 tab 02/24/24 Rx 5-325] Lutein/Zeaxanthin 1 cap PO DAILY 02/24/24 02/24/24 History [Lutein-Zeaxanthin 20-4 mg Softgel] Meloxicam [Mobic] 15 mg PO DAILY 02/24/24 02/24/24 History Multivitamins, Thera [Multivitamin 1 tab PO DAILY 02/24/24 02/24/24 History (formulary)] Prevagen 1 tab PO DAILY 02/24/24 02/24/24 History Spironolactone [Aldactone] 25 mg PO HS 02/24/24 02/24/24 History Sulfamethoxazole/Trimethoprim 1 tab PO BID 02/24/24 02/24/24 History [Bactrim DS 800-160 mg] Testosterone Cypionate 100 mg IM Q21D 02/24/24 02/24/24 History [Depo-Testosterone] Valsartan [Diovan] 160 mg PO DAILY 02/24/24 02/24/24 History amLODIPine [Norvasc] 5 mg PO HS 02/24/24 02/24/24 History icosapent ethyL [Icosapent Ethyl] 2 gm PO DAILY 02/24/24 02/24/24 History metFORMIN HCL ER [Glucophage XR] 500 mg PO HS 02/24/24 02/24/24 History Allergies Allergy/AdvReac Type Severity Reaction Status Date / Time No Known Allergies Allergy Verified 02/24/24 06:33 Physical Exam Vitals: Vital Signs Temp Pulse Pulse Resp BP BP Pulse Ox 02/24/24 07:43 98.8 F 77 14 159/82 98 02/24/24 02:56 72 16 171/67 97 02/24/24 01:30 69 18 179/80 98 02/24/24 01:15 70 16 162/80 99 02/24/24 01:05 72 16 164/86 98 02/24/24 00:58 68 16 128/69 99 02/24/24 00:45 74 18 124/65 95 02/24/24 00:41 71 16 135/72 96 02/24/24 00:35 65 18 167/79 98 02/24/24 00:29 64 16 161/72 96 02/23/24 22:54 70 18 151/78 93 L 02/23/24 21:39 98.5 F 69 16 175/85 95 Intake and Output 02/23/24 02/24/24 02/24/24 22:59 06:59 14:59 Intake Total 140 Balance 140 Intake: Oral 140 Other: Weight 73.482 kg PHYSICAL EXAMINATION: Patient is lying in the bed comfortably, no acute distress, awake alert and oriented.. HEENT: Normocephalic. Neck is supple. Pupils reactive. Nostrils clear. Oral cavity is moist. Neck reveals no JVD, carotid bruits, or thyromegaly. CHEST EXAMINATION: Trachea is central. Symmetrical expansion. Right upper Thora vent in place. Lung pedraza clear to auscultation and percussion. CARDIAC: Normal S1, S2 with no gallops. No murmurs ABDOMEN: Soft. Bowel sounds normal. No organomegaly. No abdominal bruits. Extremities: reveal no edema. No clubbing or cyanosis Neurologically awake, alert, oriented x3 with well-coordinated movements. No focal deficits noted Skin: No rash or skin lesions. Psychiatric: Coperative. Nonsuicidal Musculoskeletal: No joint swelling or deformity. Normal range of motion. Results CBC & Chem 7: 02/24/24 10:30 02/24/24 10:30 Labs: Abnormal Lab Results - Last 24 Hours (Table) 02/23/24 02/23/24 02/23/24 Range/Units 21:47 21:47 21:47 RBC 4.19 L (4.30-5.90) m/uL PT 9.7 L (10.0-12.5) sec Sodium 126 L (137-145) mmol/L Chloride 97 L (98-107) mmol/L BUN 24 H (9-20) mg/dL Glucose 104 H (74-99) mg/dL Total Protein 6.1 L (6.3-8.2) g/dL Assessment and Plan Assessment: Acute right sided moderate pneumothorax. Status post chest tube placement. Status post mechanical fall on the right side on February 18, 2024 Hypovolemic hyponatremia Hypertension Diabetes type 2 [id number] Hyperlipidemia Coronary arteries history of stent placement Prior history of smoking Daily alcohol use Plan: Patient will be continued on pain management. Encourage incentive spirometry Status post Thora vent placement and is currently off suction. Repeat chest x- ray was ordered for tomorrow. Start back on home medications and follow-up closely. Pulmonary and CT surgery is on board. Time with Patient: Greater than 30
[2024-02-25 03:59] VITALS: PULSE 70
--- NOTE | 2024-02-25 07:59 | XR ---
EXAMINATION TYPE: XR chest 2V DATE OF EXAM: 02/25/2024 COMPARISON: 02/24/2024 INDICATION: Pneumothorax TECHNIQUE: Frontal and lateral views of the chest are obtained. FINDINGS: The heart size is normal. The pulmonary vasculature is normal. The lungs are clear. Right-sided Pleur-evac chest tube is present. No pneumothorax is evident. IMPRESSION: 1. No pneumothorax evident. Right-sided chest catheter remains present.
[2024-02-25 08:06] VITALS: BP 152/78; RESP 18; TEMP 98.5
[2024-02-25] MEDS: THIAMINE 100 MG TAB PO SCH (08:21)
[2024-02-25 08:56] LABS: BUN/Creat Ratio 17.67 Ratio (12.00-20.00); Blood Urea Nitrogen 15.9 mg/dL (9.0-27.0); Calcium 8.9 mg/dL (8.7-10.3); Carbon Dioxide 21.1 mmol/L (21.6-31.8); Chloride 98 mmol/L (96-109); Glucose 106 mg/dL (70-110); Potassium 4.2 mmol/L (3.5-5.5); Sodium 130 mmol/L (135-145)
[2024-02-25 08:57] LABS: Basophils # (A) 0.05 X 10*3/uL (0.00-0.10); Basophils % (A) 0.7 %; Eosinophils # (A) 0.32 X 10*3/uL (0.04-0.35); Eosinophils % (A) 4.6 %; HCT 40.2 % (39.6-50.0); HGB 13.7 g/dL (13.0-17.0); Lymphocytes # (A) 1.25 X 10*3/uL (0.90-5.00); MCH 31.9 pg (27.0-32.0); MCHC 34.1 g/dL (32.0-37.0); MCV 93.5 FL (80.0-97.0); Mean Platelet Volume 9.4 FL (9.5-12.2); Monocytes # (A) 0.91 X 10*3/uL (0.20-1.00); Monocytes % (A) 13.1 %; NRBC Per 100 WBC 0 X 10*3/uL (0.00-0.01); Neutrophils # (A) 4.42 X 10*3/uL (1.80-7.70); Neutrophils % (A) 63.5 %; Platelet Count 259 X 10*3/uL (140-440); RDW 12.5 % (11.5-14.5); WBC 6.96 X 10*3/uL (4.50-10.00)
--- NOTE | 2024-02-25 11:26 | P.PN ---
Subjective Progress Note Date: 02/25/24 Principal diagnosis: Right-sided traumatic pneumothorax status post fall, status post Thora vent placement. Past medical history significant for CAD status post stenting, hypertension, previous tobacco dependence, daily EtOH use, and occasional marijuana use. Status post day #1 placement of right Thoravent for traumatic right-sided pneumothorax The patient was seen and examined in follow-up today February 25, 2024 at his bedside on the fourth floor medical surgical unit. He is currently sitting up to the bedside chair, is awake, alert, oriented x 3 and is in no acute apparent distress. Denies any complaints of pain or shortness of breath at this time. He does report some minimal pain with taking a deep breath. Oxygen saturations are 96% on room air and he is achieving 2250 mL on his incentive spirometry with encouragement. He is up ambulating in his room. Right chest Thoravent remains in place and is currently capped. No air leak is present. Chest x-ray this morning shows no evidence of pneumothorax. Objective - Vital Signs Vital signs: Vital Signs Temp 98.5 F 02/25/24 06:47 Pulse 70 02/25/24 06:47 Resp 18 02/25/24 06:47 BP 152/78 02/25/24 06:47 Pulse Ox 93 L 02/25/24 06:47 FiO2 Intake & Output 02/24/24 02/25/24 02/25/24 18:59 06:59 18:59 Intake Total 1440 Balance 1440 Weight 73.482 kg Intake: IV 1300 Sodium Chloride 0.9% 1, 1300 000 ml @ 130 mls/hr IV . Q7H42M STA Rx#:[id number] Oral 140 Other: # Voids 1 1 - Exam CONSTITUTIONAL: Appears comfortable, cooperative, no acute distress RESPIRATORY: Lungs sounds essentially clear throughout. Respirations symmetrical, nonlabored. Currently on room air with oxygen saturation 96%. Able to achieve 2250 mL on his incentive spirometry. Strong cough. CARDIOVASCULAR: S1, S2 present. Regular rate and rhythm. Palpable peripheral pulses bilaterally. No edema present. No calf pain or tenderness noted. SCDs present. GASTROINTESTINAL: Abdomen soft, nontender, nondistended. Active bowel sounds present 4 quadrants. Tolerating diet. GENITOURINARY: Continues to void clear, yellow urine. INTEGUMENTARY: Skin is warm and dry with no clubbing or cyanosis present. NEUROLOGIC: Cranial nerves II through XII intact. No focal deficits. MUSKULOSKELETAL: Able to move all extremities, strength equal bilaterally, gait normal PSYCHIATRIC: Alert and oriented to person place and time, appropriate affect, intact judgment and insight INVASIVE LINES AND TUBES: Right chest Thoravent in place and is currently capped. No air leak is present. - Allied health notes Allied health notes reviewed: nursing - Labs CBC & Chem 7: 02/25/24 05:40 02/25/24 05:40 Labs: Abnormal Lab Results - Last 24 Hours (Table) 02/24/24 02/25/24 02/25/24 Range/Units 10:30 05:40 05:40 RBC 4.30 L (4.40-5.60) X 10*6/uL MPV 9.4 L (9.5-12.2) FL Sodium 130 L 130 L (135-145) mmol/L Carbon Dioxide 21.1 L (21.6-31.8) mmol/L - Imaging and Cardiology Chest x-ray: report reviewed, image reviewed Assessment and Plan Assessment: Right-sided traumatic pneumothorax, status post Thora vent placement by the emergency room physicians Fall from standing Right-sided 4-6 rib fractures Shortness of breath, right-sided chest pain CAD status post stenting Hypertension Previous tobacco dependence Daily EtOH use Occasional marijuana use Plan: Right Thoravent occlusive cap has been placed. Anticipate removal of right Thoravent today. Will repeat chest x-ray at 12 noon today, if his chest x-ray continues show no evidence of pneumothorax we will remove his Thoravent. Encourage use of his incentive spirometry 10 times every hour while awake. Pain control per current medication regimen. Patient and were instructed that the patient may not get on an airplane for a minimum of 2 weeks. Medical management and other comorbidities per primary care service, pulmonology and trauma services. Once the Thoravent has been removed the patient can be discharged home per the cardiothoracic surgery standpoint when okay with admitting service and other consultants. More recommendations to follow based on patient's clinical course. Time with Patient: Greater than 30
--- NOTE | 2024-02-25 12:11 | P.PN ---
Subjective Progress Note Date: 02/25/24 This is a very pleasant 78-year-old male patient who resides in the state [facility]. He has a history of hyperlipidemia, coronary artery disease with previous stent placement, hypertension, diabetes mellitus, former smoker, daily alcohol use. He was in [facility] boarding a [employer] ship and the night before departure in the hotel he had taken a fall and hit his right chest against a chair on February 18, 2024. He was seen in a urgent care the following morning and was deemed okay to travel. No images were obtained. He was given Motrin. He boarded the ship on February 19, 2024 and by February 22 he had seen the ship's physician for ongoing shortness of breath and right-sided chest pain. At that time an x-ray did reveal a collapsed right lung. He was taken off the ship and presented here to the emergency room last night. A CT scan of the chest revealed a moderate pneumothorax on the right. No evidence of tension. Right 4 through 6 rib fractures. A Thora vent was placed in the e mergency room. Follow-up chest x-ray showed improvement of the pneumothorax. White count 8.6. Hemoglobin 14.5. Platelets 283. Sodium 126. Potassium 4.3. Bicarb 23. BUN 24. Creatinine 0.92. Glucose 104. He is seen today in consultation on the regular medical floor. He is currently sitting up in a chair at the bedside. Awake and alert in no acute distress. Maintaining good O2 saturations in the upper 90s on room air. He is afebrile. Hemodynamically stable. Denies any significant right-sided chest pain. No worsening shortness of breath, cough or congestion. The patient is seen today February 25, 2024 in follow-up on the regular medical floor. He is awake and alert in no acute distress. Ambulating in his room. Maintaining good O2 saturations in the 90s on room air. Chest x-ray this morning shows fully expanded right lung. Thora vent remains in place, capped. No air leak noted. White count 6.9. Hemoglobin 13.7. Platelets 259. Sodium 130. Potassium 4.2. Bicarb 21. BUN 16. Creatinine 0.9. Glucose 106. Objective - Vital Signs Vital signs: Vital Signs Temp 98.5 F 02/25/24 06:47 Pulse 70 02/25/24 06:47 Resp 18 02/25/24 06:47 BP 152/78 02/25/24 06:47 Pulse Ox 93 L 02/25/24 06:47 FiO2 Intake & Output 02/24/24 02/25/24 02/25/24 18:59 06:59 18:59 Intake Total 1440 Balance 1440 Weight 73.482 kg Intake: IV 1300 Sodium Chloride 0.9% 1, 1300 000 ml @ 130 mls/hr IV . Q7H42M STA Rx#:[id number] Oral 140 Other: # Voids 1 1 - Exam GENERAL EXAM: Alert, pleasant 78-year-old gentleman, on room air, comfortable in no apparent distress. HEAD: Normocephalic. EYES: Normal reaction of pupils, equal size. NOSE: Clear with pink turbinates. THROAT: No erythema or exudates. NECK: No masses, no JVD. CHEST: No chest wall deformity. Right-sided Thora vent in place, capped. No air leak noted. LUNGS: Equal air entry with no crackles, wheeze, rhonchi or dullness. CVS: S1 and S2 normal with no audible murmur, regular rhythm. ABDOMEN: No hepatosplenomegaly, normal bowel sounds, no guarding or rigidity. SPINE: No scoliosis or deformity SKIN: No rashes CENTRAL NERVOUS SYSTEM: No focal deficits, tone is normal in all 4 extremities. EXTREMITIES: There is no peripheral edema. No clubbing, no cyanosis. Peripheral pulses are intact. - Labs CBC & Chem 7: 02/25/24 05:40 02/25/24 05:40 Labs: Abnormal Lab Results - Last 24 Hours (Table) 02/24/24 02/25/24 02/25/24 Range/Units 10:30 05:40 05:40 RBC 4.30 L (4.40-5.60) X 10*6/uL MPV 9.4 L (9.5-12.2) FL Sodium 130 L 130 L (135-145) mmol/L Carbon Dioxide 21.1 L (21.6-31.8) mmol/L Assessment and Plan Assessment: Right-sided chest pain secondary to trauma and right-sided pneumothorax with rib fractures 4 through 6. Status post Thora vent placement Hypertension Diabetes mellitus Hyperlipidemia Coronary disease with previous stent placement Former smoker Daily alcohol use Plan: The patient was seen and evaluated Chest x-ray, labs and medications reviewed Stable and on room air Thora vent is capped, no leak noted Follow-up chest x-ray pending Discharge once cleared by CT service Patient informed not safe for him to fly He and his plan to drive back to [place] after discharge This patient was seen independently by the pulmonary nurse practitioner zariar marcello pulmonary issues I have personally seen and examined the patient, performed the documentation and the assessment and plan as written. Number of minutes spent on the visit: 24.
--- NOTE | 2024-02-25 12:32 | XR ---
EXAMINATION TYPE: XR chest 1V portable DATE OF EXAM: 02/25/2024 Comparison: 02/25/2024, earlier today Clinical History: 78-year-old male Right pneumothorax Findings: Right-sided thoracic vent catheter remains in place. No appreciable pneumothorax. Heart normal size. Aorta and pulmonary vasculature within normal limits. Minimal subcutaneous emphysema lower lateral ri ght chest wall. Impression: Right-sided Thoravent catheter remains in place. No appreciable pneumothorax.
--- NOTE | 2024-02-25 14:27 | P.DS ---
Providers Date of admission: 02/24/24 13:11 Expected date of discharge: 02/25/24 Attending physician: Aby Aldana Consults: 02/24/24 01:25 Consult Physician Urgent Consulting Provider: Dimitri Griffin Consult Reason/Comments: fall, pneumothorax, s/p chest tube Do you want consulting provider notified?: Already Contacted 02/24/24 07:15 Consult Physician Urgent Consulting Provider: Parrish Styles Consult Reason/Comments: fall, right sided rib fractures Do you want consulting provider notified?: Yes 02/24/24 07:50 Consult Physician Routine Consulting Provider: Joe Ruiz Consult Reason/Comments: Right pneumothorax, post thora-vent Do you want consulting provider notified?: Yes Primary care physician: Stated None Hospital Course: Discharge diagnosis 1. Fall with trauma to right-sided rib cage 2. Right fourth through sixth rib fractures 3. Right pneumothorax secondary to trauma with rib fractures 4. Daily alcohol use 5. History of coronary disease with stenting 6. Hypertension 7. Hyponatremia Hospital course This is a 78-year-old male who lives in [place]. He was in a hotel in [place] on February 17 in which he was ambulating that evening to the bathroom he fell coming back and hit the right side of his rib cage on the arm of a chair. Patient was found to have right-sided pneumothorax on chest x-ray while traveling on the [employer] cruise ship. This reported. Patient came to [facility] for evaluation. He was found to have right-sided pneumothorax and had a Thora vent chest tube placed. He has been followed by pulmonary and cardiothoracic service. Repeat chest x-rays showing no pneumothorax. Thora vent removed. Patient is ambulating. He is on room air. Pain is controlled. Patient also seen by pain service and medicine service on his admission. Patient has been cleared by all consultants. He is afebrile. He is ambulating. He is stable for discharge. 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 Signing provider agrees with the documented findings, assessment, and plan of care. Patient Condition at Discharge: Stable Plan - Discharge Summary Discharge Rx Participant: No New Discharge Prescriptions: New HYDROcodone/APAP 5-325MG [[place] 5-325] 1 each PO Q4HR PRN 3 Days #15 tab PRN Reason: Pain Continue Beta Sitosterol Pure Encap. 1 tab PO DAILY Docusate 50mg 50 mg PO DAILY Prevagen 1 tab PO DAILY Acetaminophen [Tylenol Arthritis] 650 mg PO BID Atorvastatin [Lipitor] 60 mg PO HS Bromfenac Sodium [Prolensa Ophth Soln] 1 drop LEFT EYE Q2D icosapent ethyL [Icosapent Ethyl] 2 gm PO DAILY Lutein/Zeaxanthin [Lutein-Zeaxanthin 20-4 mg Softgel] 1 cap PO DAILY Meloxicam [Mobic] 15 mg PO DAILY metFORMIN HCL ER [Glucophage XR] 500 mg PO HS Sulfamethoxazole/Trimethoprim [Bactrim DS 800-160 mg] 1 tab PO BID Testosterone Cypionate [Depo-Testosterone] 100 mg IM Q21D Valsartan [Diovan] 160 mg PO DAILY Diclofenac/Lidocaine Gel 1 applic TOPICAL QID PRN PRN Reason: Pain Alfuzosin HCl [Alfuzosin HCl ER] 10 mg PO HS amLODIPine [Norvasc] 5 mg PO HS Ascorbic Acid [Vitamin C] 1,000 mg PO DAILY Eszopiclone [Lunesta] 3 mg PO HS Multivitamins, Thera [Multivitamin (formulary)] 1 tab PO DAILY Spironolactone [Aldactone] 25 mg PO HS Discharge Medication List Acetaminophen [Tylenol Arthritis] 650 mg PO BID 02/24/24 [History] Alfuzosin HCl [Alfuzosin HCl ER] 10 mg PO HS 02/24/24 [History] Ascorbic Acid [Vitamin C] 1,000 mg PO DAILY 02/24/24 [History] Atorvastatin [Lipitor] 60 mg PO HS 02/24/24 [History] Beta Sitosterol Pure Encap. 1 tab PO DAILY 02/24/24 [History] Bromfenac Sodium [Prolensa Ophth Soln] 1 drop LEFT EYE Q2D 02/24/24 [History] Diclofenac/Lidocaine Gel 1 applic TOPICAL QID PRN 02/24/24 [History] Docusate 50mg 50 mg PO DAILY 02/24/24 [History] Eszopiclone [Lunesta] 3 mg PO HS 02/24/24 [History] HYDROcodone/APAP 5-325MG [[place] 5-325] 1 each PO Q4HR PRN 3 Days #15 tab 02/24/24 [Rx] Lutein/Zeaxanthin [Lutein-Zeaxanthin 20-4 mg Softgel] 1 cap PO DAILY 02/24/24 [History] Meloxicam [Mobic] 15 mg PO DAILY 02/24/24 [History] Multivitamins, Thera [Multivitamin (formulary)] 1 tab PO DAILY 02/24/24 [History] Prevagen 1 tab PO DAILY 02/24/24 [History] Spironolactone [Aldactone] 25 mg PO HS 02/24/24 [History] Sulfamethoxazole/Trimethoprim [Bactrim DS 800-160 mg] 1 tab PO BID 02/24/24 [History] Testosterone Cypionate [Depo-Testosterone] 100 mg IM Q21D 02/24/24 [History] Valsartan [Diovan] 160 mg PO DAILY 02/24/24 [History] amLODIPine [Norvasc] 5 mg PO HS 02/24/24 [History] icosapent ethyL [Icosapent Ethyl] 2 gm PO DAILY 02/24/24 [History] metFORMIN HCL ER [Glucophage XR] 500 mg PO HS 02/24/24 [History] Follow up Appointment(s)/Referral(s): None,Stated [Primary Care Provider] - 1-2 days Activity/Diet/Wound Care/Special Instructions: DISCHARGE INSTRUCTIONS: 1. No lifting, pushing, or pulling more than 10 pounds for 4 weeks 2. Continue pain control per as needed orders. 3. Continue with incentive spirometry and splinting until otherwise directed by the physician. 4. Leave chest tube dressing for 48 hours. After that, remove all dressings and shower daily. 5. Routine incision care. No powders, lotions, ointments on incisions. 6. NO FLYING FOR MINIMUM 1 WEEK, PREFERABLY 2 WEEKS Do not use Tylenol while taking [place] Discharge Disposition: HOME SELF-CARE
== END 2024-02-25 14:56 | disposition home or self-care (01) | DRG 200 ==
LOC: EC 21:35 → 4SSUR 02-24 01:28 → OBSVTOIN 02-24 13:11
PROVIDERS: ADMIT Surgery Plastic and Reconstructive Surgery; ATTEND Surgery Plastic and Reconstructive Surgery
PROC: 0W9930Z Drainage of Right Pleural Cavity with Drainage Device, Percutaneous Approach (ICD-10-PCS; principal; 2024-02-24)
DX: S27.0XXA Traumatic pneumothorax, initial encounter (principal); E87.1 Hypo-osmolality and hyponatremia; S22.41XA Multiple fractures of ribs, right side, initial encounter for closed fracture; E11.9 Type 2 diabetes mellitus without complications; I10 Essential (primary) hypertension; E78.5 Hyperlipidemia, unspecified; I25.10 Atherosclerotic heart disease of native coronary artery without angina pectoris; W18.30XA Fall on same level, unspecified, initial encounter; W22.03XA Walked into furniture, initial encounter; Y92.59 Other trade areas as the place of occurrence of the external cause; Z79.1 Long term (current) use of non-steroidal anti-inflammatories (NSAID); Z79.899 Other long term (current) drug therapy; Z95.5 Presence of coronary angioplasty implant and graft
CPT/HCPCS: 36415; 71045; 71046; 71250; 80048; 80053; 85025; 85610; 85730; 96374; 99152; 99153; 99291